=== PATIENT | female | born 1955 | race Caucasian/White ===

== ENCOUNTER → 2017-07-15 | Outpatient (CLI) | payer OTHER ==
[~2017-07-15] MED LIST: ALBU90OI INH; ALBU90OI6 INH; AMOX500 PO; BENZ100A PO; CLON1 PO; DIAZ2 PO; DIAZ5 PO; DOCU100 PO; FLUSAL1005 IH; HYDACE5 PO; HYDACE5325 PO; LORA1 PO; MEDICAL MARIJUANA; METPRE4DP PO; NAPR220 PO; ONDA8ODT MM; OXYACE5T PO; PROC10 PO; PROM25; RXOXYACE PO; VARE1 PO; [UNRECOGNIZED DRUG - REMARK] INH
[2017-07-16 15:31] LABS: Bilirubin, Urine Neg (Neg); Blood, Urine 3+ (Neg); Glucose Qualitative, Urine Neg (Neg); Ketones, Urine Neg (Neg); Leukocyte Esterase, Urine 3+ (Neg); Nitrite, Urine Neg (Neg); Protein, Urine 1+ (Neg); Specific Gravity, Urine 1.025 (1.003-1.022); Urobilinogen, Urine NORM (Normal)
[2017-07-16 15:37] LABS: Appearance, Urine Hazy (Clear); Color, Urine Yellow (P-Yellow)
[2017-07-16 15:38] LABS: Bacteria Mod /hpf; Red Blood Cells, Urine 25-50 /hpf (0-2); Squamous Epithelial Cells Few /hpf (Few); White Blood Cells, Urine 25-50 /hpf (0-5)
== END | disposition home or self-care (01) ==
LOC: LAB 15:16
PROVIDERS: Nurse Practitioner Family
DX: B37.9 Candidiasis, unspecified (principal); R31.9 Hematuria, unspecified
CPT/HCPCS: 81001; 87086

== ENCOUNTER 2017-08-06 15:44 | Emergency (ER) | payer OTHER ==
[~2017-08-06] VITALS: Ht 152.4 cm; Wt 72.6 kg
[2017-08-06 17:14] LABS: BASOPHILS ABSOLUTE AUTO 0.03 K/mm3 (0.00-0.23); BASOPHILS PERCENT AUTO 0 % (0-2); EOSINOPHILS ABSOLUTE AUTO 0.01 K/mm3 (0.00-0.68); EOSINOPHILS PERCENT AUTO 0 % (0-6); Hematocrit 42.4 % (33.0-51.0); Hemoglobin 13.8 g/dL (11.5-16.0); IMMATURE GRAN ABSOLUTE AUTO 0.04 K/mm3 (0.00-0.10); IMMATURE GRAN PERCENT AUTO 0 % (0-1); LYMPHOCYTES ABSOLUTE AUTO 1.75 K/mm3 (0.84-5.20); LYMPHOCYTES PERCENT AUTO 17 % (21-46); MONOCYTES ABSOLUTE AUTO 0.97 K/mm3 (0.16-1.47); MONOCYTES PERCENT AUTO 10 % (4-13); Mean Corpuscular HGB 29.1 pg (26.0-34.0); Mean Corpuscular HGB Conc 32.5 g/dL (31.5-36.5); Mean Corpuscular Volume 90 fL (80-100); Mean Platelet Volume 8.6 fL (9.1-12.4); NEUTROPHILS ABSOLUTE AUTO 7.28 K/mm3 (1.96-9.15); NEUTROPHILS PERCENT AUTO 72 % (41-73); Platelet Count 244 K/mm3 (150-400); RDW Standard Deviation 42.6 fL (35.1-46.3); Red Blood Cell Count 4.74 M/mm3 (3.80-5.20); White Blood Cell Count 10.08 K/mm3 (4.00-11.30)
[2017-08-06 17:40] LABS: Troponin I <0.015 ng/mL (0.000-0.040)
[2017-08-06 17:43] LABS: Alanine Aminotransfer (ALT/SGP 16 U/L (12-78); Albumin, Blood 3.4 g/dL (3.4-5.0); Albumin/Globulin Ratio 0.6 (0.8-1.8); Alk Phos 98 U/L (50-136); Anion Gap 10 mmol/L (6-16); Aspartate Aminotrans (AST/SGOT 26 U/L (12-37); Bilirubin, Total 0.8 mg/dL (0.1-1.0); Blood Urea Nitrogen 22 mg/dL (8-24); Bun/Creatinine Ratio 15.9 (12.0-20.0); CO2, Blood 22 mmol/L (21-32); Calcium, Blood 8.7 mg/dL (8.5-10.1); Chloride, Blood 96 mmol/L (98-108); Creatinine, Blood 1.38 mg/dL (0.40-1.00); Globulin, Blood 5.5 g/dL (2.2-4.0); Glomerular Filtration Rate 41 (60-); Glucose, Blood 107 mg/dL (70-99); Potassium, Blood 4.2 mmol/L (3.5-5.5); Sodium, Blood 128 mmol/L (136-145); Total Protein, Blood 8.9 g/dL (6.4-8.2)
== END 2017-08-06 18:10 | disposition left against medical advice (07) ==
LOC: ER 15:44
PROVIDERS: Emergency Medicine
DX: Z53.21 Procedure and treatment not carried out due to patient leaving prior to being seen by health care provider (principal)
CPT/HCPCS: 36415; 71046; 80053; 84484; 85025; 93005; 93010; 99283

== ENCOUNTER 2018-11-21 14:14 | Day surgery (SDC) | payer OTHER ==
[~2018-11-21 14:14] MED LIST changes: +BUPR75; +LEVSOD75; +LOSA50; +TIOT18
== END 2018-11-21 23:21 | disposition home or self-care (01) ==
LOC: RAD 14:14
DX: M16.11 Unilateral primary osteoarthritis, right hip (principal); M87.051 Idiopathic aseptic necrosis of right femur
CPT/HCPCS: 20610; 27093; 73525; 73722; 77002; A9577; Q9967

== ENCOUNTER 2020-04-26 09:30 | Day surgery (SDC) | payer OTHER ==
[~2020-04-26] VITALS: Ht 157.5 cm; Wt 50.8 kg
[~2020-04-26 09:30] MED LIST changes: +HYDR1TAB94 PO; +PEPCID40 MG PO; +Zofran8 MG PO
--- NOTE | 2020-04-26 13:43 | NUR ---
04/26/20 1343 MIGUEL WHALEY DELAYED ENTRY:1000 PT IS CANDIDATE FOR A MAC D/T UNDERLYING COMORBIDITIES AND HOME O2 USE. AND DR. PARSON IN AGREEMENT. CASE CHANGE TO MAC WITH DR. PARSON ANESTHESIOLOGIST.
== END 2020-04-26 11:40 | disposition home or self-care (01) ==
LOC: ORSCSDS 09:30
PROVIDERS: Surgery
PROC: 0DJD8ZZ Inspection of Lower Intestinal Tract, Via Natural or Artificial Opening Endoscopic (ICD-10-PCS; principal; 2020-04-26 10:45)
PROC: 0DJ08ZZ Inspection of Upper Intestinal Tract, Via Natural or Artificial Opening Endoscopic (ICD-10-PCS; principal; 2020-04-26 10:45)
DX: R10.13 Epigastric pain (principal); K62.5 Hemorrhage of anus and rectum; R63.4 Abnormal weight loss; J44.9 Chronic obstructive pulmonary disease, unspecified; K21.9 Gastro-esophageal reflux disease without esophagitis; N18.9 Chronic kidney disease, unspecified; E03.9 Hypothyroidism, unspecified; F17.210 Nicotine dependence, cigarettes, uncomplicated; Z79.01 Long term (current) use of anticoagulants; Z79.899 Other long term (current) drug therapy
CPT/HCPCS: J2704; J7120

== ENCOUNTER 2020-05-23 03:07 | Emergency (ER) | payer OTHER ==
[~2020-05-23] VITALS: Ht 154.9 cm; Wt 50.4 kg
[2020-05-23 03:45] LABS: BASOPHILS ABSOLUTE AUTO 0.07 K/mm3 (0.00-0.23); BASOPHILS PERCENT AUTO 1 % (0-2); EOSINOPHILS ABSOLUTE AUTO 0.26 K/mm3 (0.00-0.68); EOSINOPHILS PERCENT AUTO 2 % (0-6); Hematocrit 39.8 % (33.0-51.0); Hemoglobin 12.5 g/dL (11.5-16.0); IMMATURE GRAN ABSOLUTE AUTO 0.03 K/mm3 (0.00-0.10); IMMATURE GRAN PERCENT AUTO 0 % (0-1); LYMPHOCYTES ABSOLUTE AUTO 3.24 K/mm3 (0.84-5.20); LYMPHOCYTES PERCENT AUTO 27 % (21-46); MONOCYTES ABSOLUTE AUTO 0.94 K/mm3 (0.16-1.47); MONOCYTES PERCENT AUTO 8 % (4-13); Mean Corpuscular HGB 27.7 pg (26.0-34.0); Mean Corpuscular HGB Conc 31.4 g/dL (31.5-36.5); Mean Corpuscular Volume 88 fL (80-100); NEUTROPHILS ABSOLUTE AUTO 7.38 K/mm3 (1.96-9.15); NEUTROPHILS PERCENT AUTO 62 % (41-73); Platelet Count 468 K/mm3 (150-400); RDW Coefficient Variation 13.9 % (11.7-14.2); RDW Standard Deviation 44.9 fL (35.1-46.3); Red Blood Cell Count 4.51 M/mm3 (3.80-5.20); White Blood Cell Count 11.92 K/mm3 (4.00-11.30)
[2020-05-23 03:58] LABS: Alanine Aminotransfer (ALT/SGP 8 U/L (12-78); Albumin, Blood 2.9 g/dL (3.4-5.0); Albumin/Globulin Ratio 0.6 (0.8-1.8); Alk Phos 95 U/L (50-136); Anion Gap 6 mmol/L (6-16); Aspartate Aminotrans (AST/SGOT 17 U/L (12-37); Bilirubin, Total 0.5 mg/dL (0.1-1.0); Blood Urea Nitrogen 10 mg/dL (8-24); CO2, Blood 33 mmol/L (21-32); Calcium, Blood 9.1 mg/dL (8.5-10.1); Chloride, Blood 101 mmol/L (98-108); Creatinine, Blood 0.91 mg/dL (0.40-1.00); Globulin, Blood 5.2 g/dL (2.2-4.0); Glomerular Filtration Rate >60 (60-); Glucose, Blood 96 mg/dL (70-99); Potassium, Blood 2.8 mmol/L (3.5-5.5); Sodium, Blood 140 mmol/L (136-145); Total Protein, Blood 8.1 g/dL (6.4-8.2)
[2020-05-23] MEDS ORDERED: ALBU90OI INH (04:27)
[2020-05-23] MEDS ORDERED: CLOP75 PO (04:28)
[2020-05-23] MEDS ORDERED: POTCHL20ER PO (04:28)
[2020-05-23] MEDS ORDERED: OMEP20ER PO (04:28)
[2020-05-23] MEDS ORDERED: LEVSOD75 PO (04:29)
[2020-05-23] MEDS ORDERED: ATOR20 PO (04:29)
[2020-05-23] MEDS ORDERED: Ultram50 MG PO (04:30)
[2020-05-23] MEDS ORDERED: TRIDERM28.4 GM TOP (04:30)
[2020-05-23] MEDS ORDERED: LIDO5TO TOP (04:30)
== END 2020-05-23 06:15 | disposition home or self-care (01) ==
LOC: ER 03:07
PROVIDERS: Physician Assistant
DX: E87.6 Hypokalemia (principal); R10.9 Unspecified abdominal pain; G89.29 Other chronic pain; R11.2 Nausea with vomiting, unspecified; R19.7 Diarrhea, unspecified; G40.909 Epilepsy, unspecified, not intractable, without status epilepticus; J45.909 Unspecified asthma, uncomplicated; F17.210 Nicotine dependence, cigarettes, uncomplicated; Z79.02 Long term (current) use of antithrombotics/antiplatelets; Z79.899 Other long term (current) drug therapy
CPT/HCPCS: 80053; 83605; 85025; 93005; 93010; 96374; 99284-25; J3010

== ENCOUNTER 2020-06-08 11:02 | Day surgery (SDC) | payer OTHER ==
[~2020-06-08] VITALS: Ht 154.9 cm; Wt 49.0 kg
[~2020-06-08 11:02] MED LIST changes: +ATOR20 PO; +CLOP75 PO; +LEVSOD75 PO; +LIDO5TO TOP; +OMEP20ER PO; +POTCHL20ER PO; +TRIDERM28.4 GM TOP; +Ultram50 MG PO
--- NOTE | 2020-06-08 11:35 | NUR ---
DR DAVID EVALUATED PT, UPDATED ON LABS (LOW POTASSIUM); ORDERS RECEIVED.
[2020-06-08] MEDS ORDERED: SPIRIVA RESPIMAT4 G3 INH (11:55)
--- NOTE | 2020-06-08 14:45 | NUR ---
PATIENT RETURNED TO ROOM POST PROCEDURE. AWAKE AND RESPONDS APPROPRIATELY. RIGHT GROIN SITE SOFT AND NONTENDER. DRESSING DRY AND INTACT. DENIES PAIN. RIGHT PT AND DP 2. HOB 30 DEGREES.
--- NOTE | 2020-06-08 17:07 | NUR ---
PATIENT AMBULATED TO BATHROOM TO VOID. SATBLE. RETURNED TO BED. RIGHT GROIN SITE REMAINS SOFT AND NONTENDER. DRESSING DRY AND IN TACT
--- NOTE | 2020-06-08 17:15 | NUR ---
DR DAVID IN TO SEE PATIENT AND DISCUSS NEED TO CONTINUE HER PALVIX
--- NOTE | 2020-06-08 18:03 | NUR ---
PATIENT UP AND DRESSED BY SELF. RIGHT GROIN SITE REMAINS SOFT AND NONTENDER. NO BLEEDING. NO SWELLING. 75MG PLAVIX PO GIVEN PER DR COELLO ORDER. IV SITE DCED WITH CATHETER INTACT. PATIENT DENIES NAUSEA OR PAIN. DISCHARGE INSTRUCTIONS AND PRECAUTIONS GIVEN TO PATIENT. INSTRUCTIONS ON TAKING PLAVIX ALSO GIVEN TO HER SISTER. BOTH VERBALIZED UNDERSTANDING. PATIENT TRANSFERRED TO WAITING CAR VIA WHEEL CHAIR.
[2020-08-16] MEDS ORDERED: VITAMIN D31000 UNI1 PO (13:52)
[2020-08-16] MEDS ORDERED: EUTHYROX50 MCG PO (13:52)
[2020-08-16] MEDS ORDERED: ASPIR 8181 M1 PO (13:52)
[2020-08-16] MEDS ORDERED: LOSA50 PO (13:53)
== END 2020-06-08 22:40 | disposition home or self-care (01) ==
LOC: MHTC 11:02
DX: K55.1 Chronic vascular disorders of intestine (principal); I70.0 Atherosclerosis of aorta; I74.5 Embolism and thrombosis of iliac artery; I12.9 Hypertensive chronic kidney disease with stage 1 through stage 4 chronic kidney disease, or unspecified chronic kidney disease; N18.30 Chronic kidney disease, stage 3 unspecified; D63.1 Anemia in chronic kidney disease; F41.9 Anxiety disorder, unspecified; I25.10 Atherosclerotic heart disease of native coronary artery without angina pectoris; J44.9 Chronic obstructive pulmonary disease, unspecified; E03.9 Hypothyroidism, unspecified; G43.909 Migraine, unspecified, not intractable, without status migrainosus; Z20.822 Contact with and (suspected) exposure to COVID-19; Z86.73 Personal history of transient ischemic attack (TIA), and cerebral infarction without residual deficits; Z91.040 Latex allergy status; Z88.1 Allergy status to other antibiotic agents; Z88.5 Allergy status to narcotic agent; Z88.7 Allergy status to serum and vaccine; Z79.02 Long term (current) use of antithrombotics/antiplatelets; Z79.899 Other long term (current) drug therapy; Z91.030 Bee allergy status
CPT/HCPCS: 36245; 37221; 37236; 75625; 75726; 99152; 99153; A9270; C1725; C1760; C1769; C1874; C1876; C1887; C1894; J1644; J2250; J2405; J3010; J3480; J7030; J7050; Q9967

== ENCOUNTER 2020-06-14 11:34 | Inpatient (IN) | payer OTHER ==
[~2020-06-14] VITALS: Ht 157.5 cm; Wt 52.9 kg
[~2020-06-14 11:34] MED LIST changes: +SPIRIVA RESPIMAT4 G3 INH
[2020-06-14 11:50] LABS: Calcium, Ionized (POC) 1.05 mmol/L (1.10-1.46); Chloride (POC) 102 mmol/L (98-108); Creatinine (POC) 0.8 mg/dL (0.6-1.0); Glucose (ISTAT POC) 74 mg/dL (70-99); Hemoglobin (POC) 10.2 g/dL (12.0-16.0); Potassium (POC) 3.2 mmol/L (3.5-5.5); Sodium (POC) 140 mmol/L (135-148); Total CO2 (POC) 28 mmol/L (21-32)
[2020-06-14 11:55] LABS: Source, Urine Catheter
[2020-06-14 12:07] LABS: BASOPHILS ABSOLUTE AUTO 0.03 K/mm3 (0.00-0.23); BASOPHILS PERCENT AUTO 0 % (0-2); EOSINOPHILS ABSOLUTE AUTO 0.46 K/mm3 (0.00-0.68); EOSINOPHILS PERCENT AUTO 4 % (0-6); Hemoglobin 9.5 g/dL (11.5-16.0); IMMATURE GRAN ABSOLUTE AUTO 0.06 K/mm3 (0.00-0.10); IMMATURE GRAN PERCENT AUTO 1 % (0-1); LYMPHOCYTES ABSOLUTE AUTO 2.26 K/mm3 (0.84-5.20); LYMPHOCYTES PERCENT AUTO 21 % (21-46); MONOCYTES ABSOLUTE AUTO 0.79 K/mm3 (0.16-1.47); MONOCYTES PERCENT AUTO 7 % (4-13); Mean Corpuscular HGB 28.3 pg (26.0-34.0); Mean Corpuscular HGB Conc 31.7 g/dL (31.5-36.5); Mean Corpuscular Volume 89 fL (80-100); Mean Platelet Volume 8.8 fL (9.1-12.4); NEUTROPHILS ABSOLUTE AUTO 7.37 K/mm3 (1.96-9.15); NEUTROPHILS PERCENT AUTO 67 % (41-73); Platelet Count 386 K/mm3 (150-400); RDW Coefficient Variation 14.6 % (11.7-14.2); RDW Standard Deviation 46.7 fL (35.1-46.3); Red Blood Cell Count 3.36 M/mm3 (3.80-5.20); White Blood Cell Count 10.97 K/mm3 (4.00-11.30)
[2020-06-14 12:11] LABS: Appearance, Urine Clear (Clear); Bilirubin, Urine Neg (Neg); Blood, Urine Neg (Neg); Color, Urine Yellow (P-Yellow); Glucose Qualitative, Urine Neg (Neg); Ketones, Urine 1+ (Neg); Leukocyte Esterase, Urine 1+ (Neg); Nitrite, Urine Neg (Neg); Protein, Urine Neg (Neg); Specific Gravity, Urine 1.015 (1.003-1.022); Urobilinogen, Urine NORM (Normal); pH, Urine 6.5 (5.0-8.0)
[2020-06-14 12:30] LABS: Bacteria Few /hpf; Red Blood Cells, Urine 0-2 /hpf (0-2); Squamous Epithelial Cells Few /hpf (Few)
[2020-06-14 12:35] LABS: U Amphetamine Screen DETECTED; U Barbituate Screen Not Detected; U Benzodiazapine Screen Not Detected; U Cocaine Screen Not Detected; U Methadone Screen Not Detected; U Methamphetamine Screen DETECTED; U Opiates Screen DETECTED
[2020-06-14 12:36] LABS: U Buprenorphine Screen Not Detected; U Cannabinoids Screen Not Detected; U Oxycodone Screen Not Detected; U Phencyclidine Screen Not Detected
[2020-06-14 12:44] LABS: U Propoxyphene Screen Not Detected
[2020-06-14 12:51] LABS: Alanine Aminotransfer (ALT/SGP 19 U/L (12-78); Albumin, Blood 2.5 g/dL (3.4-5.0); Albumin/Globulin Ratio 0.6 (0.8-1.8); Alk Phos 75 U/L (50-136); Anion Gap 8 mmol/L (6-16); Aspartate Aminotrans (AST/SGOT 86 U/L (12-37); Bilirubin, Total 0.6 mg/dL (0.1-1.0); Blood Urea Nitrogen 10 mg/dL (8-24); Bun/Creatinine Ratio 12.8 (12.0-20.0); CO2, Blood 26 mmol/L (21-32); Chloride, Blood 107 mmol/L (98-108); Creatinine, Blood 0.78 mg/dL (0.40-1.00); Free Thyroxine 0.72 ng/dL (0.70-1.60); Globulin, Blood 4.5 g/dL (2.2-4.0); Glomerular Filtration Rate >60 (60-); Glucose, Blood 74 mg/dL (70-99); Potassium, Blood 3.2 mmol/L (3.5-5.5); Sodium, Blood 141 mmol/L (136-145)
[2020-06-14 12:55] LABS: Troponin I 0.991 ng/mL (0.000-0.040)
[2020-06-14] MEDS ORDERED: PLAVIX75 MG PO (13:14)
[2020-06-14] MEDS ORDERED: ATOR40TA PO (13:14)
[2020-06-14] MEDS ORDERED: SPIRIVA RESPIMAT4 G3 INH (13:14)
[2020-06-14] MEDS ORDERED: SYNTHROID75 MCG PO (13:15)
[2020-06-14] MEDS ORDERED: OMEP20ER PO (13:15)
[2020-06-14] MEDS ORDERED: BREO ELLIPTA 21 EAC1 INH (13:16)
[2020-06-14] MEDS ORDERED: Ventolin/Prove6.7 GM INH (13:16)
[2020-06-14] MEDS ORDERED: TRAM50 PO (13:17)
[2020-06-14] MEDS ORDERED: ESCI20 PO (13:17)
[2020-06-14] MEDS ORDERED: AMIT50 PO (13:17)
[2020-06-14 13:40] LABS: Creatine Kinase MB 35.6 ng/mL (0.0-3.6)
[2020-06-14 13:45] LABS: U Amphetamine Screen DETECTED; U Barbituate Screen Not Detected; U Benzodiazapine Screen Not Detected; U Buprenorphine Screen Not Detected; U Cannabinoids Screen Not Detected; U Cocaine Screen Not Detected; U Methadone Screen Not Detected; U Methamphetamine Screen DETECTED; U Opiates Screen DETECTED; U Oxycodone Screen Not Detected; U Phencyclidine Screen Not Detected; U Propoxyphene Screen Not Detected
[2020-06-14 14:42] LABS: Creatine Kinase MB Index 1.6 (0.0-4.0)
[2020-06-14 15:11] LABS: PCO2 Arterial 42.3 mmHg (35-45); PO2 Arterial 61.5 mmHg (80-100); pH Blood Arterial 7.38 (7.35-7.45)
[2020-06-14] MEDS ORDERED: Pravastatin Sod20 MG PO (16:02)
--- NOTE | 2020-06-14 16:10 | NUR ---
INITIAL ASSESSMENT PATIENT UNRESPONSIVE WHEN ARRIVED TO UNIT FROM ER AT 1542. PATIENT DID NOT MOVE OR RESPOND IN ANY WAY WHEN TRANSFERRED OVER TO ICU BED FROM ER [facility]. SHORT TIME AFTER PATIENT RESPONDED TO A FEW OF NURSES QUESTIONS AFTER PATIENT'S SISTER, NED, ARRIVED IN ROOM. PATIENT WEAK. PASSIVE. PATIENT LETHARGIC AND MOSTLY SLEEPING. NO SIGNS OF PAIN NOTED. PATIENT AFEBRILE. LUNGS COARSE THROUGHOUT. PATIENT SATTING 90% AND GREATER ON RA. PATIENT HAS MOIST, NONPRODUCTIVE COUGH. PATIENT NOTED TO HAVE R LOWER LOBECTOMY. PATIENT IN SR, HR 70S TO 80S. SBP 120S TO 140S. R ABDOMINAL QUADRANT TENDER TO PALPATION. LAST BM ON THE . PATIENT NPO AT THIS TIME. TEMP PROBE MARIE IN PLACE DRAINING YELLOW COLORED URINE. COCCYX REDDENED; BLANCHEABLE. MUCOUS MEMBRANES DRY. OLD CHAIN MENDER PUNTURE SITE TO R GROIN; NO BLEEDING, BRUISING, HEMATOMA NOTED. NS INFUSING AT 100 MLS/ HOUR. K RIDER INFUSING FOR POTASSIUM IN ER OF 3.2. PATIENT ORIENTED TO UNIT, ROOM AND CALL LIGHT. BED LOW, CALL LIGHT IN REACH. MUCH OF ADMIT DATA POSSIBLE COMPLETED WITH PATIENT'S SISTER, NED.
--- NOTE | 2020-06-14 17:28 | NUR ---
Echocardiogram completed.
[2020-06-14 18:20] LABS: Hematocrit 27.4 % (33.0-51.0); Hemoglobin 8.5 g/dL (11.5-16.0)
--- NOTE | 2020-06-14 18:57 | NUR ---
SHIFT SUMMARY PATIENT ARRIVED TO UNIT AT 1540 FROM ER. PATIENT LETHARGIC AND SLEPT MOST OF THE TIME SINCE BEING ADMITTED TO ICU. PATIENT DOES ANWER INTERMITTENT QUESTIONS. PATIENT STATED TO HER SISTER "YOU SHOULD HAVE JUST LEFT ME. I AM TIRED". PATIENT HAS HAD NO COMPLAINTS OF PAIN. PATIENT HAS REMAINED AFEBRILE. PATIENT HAS REMAINED SATTING 90% AND GREATER ON RA. LUNGS REMAIN COARSE AND PATIENT CONTINUES TO HAVE MOIST, NONPRODUCTIVE COUGH. PATIENT IN SR, HR 70S TO 80S. SBP LOW 100S TO 140S. ECHO REPORT SHOWED NOTHING SIGNIFICANT. R ABDOMINAL QUADRANT TENDER TO PALPATION. PATIENT HAS REMAINED NPO. NO BM THIS SHIFT. NO CHANGE TO SKIN. NS INFUSING AT 100 MLS/ HOUR. PATIENT RECEIVED 40 MEQ OF KCL FOR POTASSIUM OF 3.2 IN ER. TEMP PROBE MARIE DRAINED 1150 MLS OF YELLOW COLORED URINE. PATIENT APPEARS COMFORTABLE AT THIS TIME. BED LOW, CALL LIGHT IN REACH. REPORT WILL BE GIVEN TO ASSUMING APPLIANCE FIXER NURSE SHORTLY.
--- NOTE | 2020-06-14 19:00 | NUR ---
ASSUMED CARE ASSUMED CARE OF PATIENT. ROUSES TO VERBAL STIMULI. ORIENTED TO SELF AND TO PLACE, BUT NOT TO DATE/TIME OR EVENTS LEADING UP TO HOSPITALIZATION. MOVES ALL EXTREMITIES WEAKLY AND TO COMMAND. SLOW VERBAL RESPONSE, BUT SPEECH IS CLEAR AND APPROPRIATE. PT IS ABLE TO ASSIST WITH REPOSITIONING. DENIES C/O PAIN OR DISCOMFORT. FLAT AFFECT NOTED. PT STATES "I WISH THEY WOULD'VE JUST LEFT ME ON THE FLOOR." DENIES SUICIDAL IDEATION, BUT STATES "I DON'T CARE IF I LIVE OR ." VSS. NS INFUSING AT 100CC/HR PER ORDER. MARIE PATENT AND DRAINING CLEAR YELLOW URINE. SEE SHIFT ASSESSMENT FOR FULL ASSESSMENT.
[2020-06-15 00:28] LABS: Hemoglobin 7.8 g/dL (11.5-16.0)
--- NOTE | 2020-06-15 01:10 | NUR ---
DIET/NICOTINE PATCH REQUEST PT REQUESTING FOOD, BUT IS ORDERED NPO AT THIS TIME. ALSO REQUESTING TO BE ABLE TO GO OUT AND SMOKE OR TO GET A NICOTINE PATCH. CALL TO DR. HOLMAN- NEW ORDERS RECEIVED TO ADVANCE DIET TOLERATED AND FOR A NICOTINE PATCH.
[2020-06-15 06:11] LABS: BASOPHILS ABSOLUTE AUTO 0.04 K/mm3 (0.00-0.23); BASOPHILS PERCENT AUTO 0 % (0-2); EOSINOPHILS ABSOLUTE AUTO 0.29 K/mm3 (0.00-0.68); EOSINOPHILS PERCENT AUTO 3 % (0-6); Hematocrit 22.9 % (33.0-51.0); Hemoglobin 7.3 g/dL (11.5-16.0); IMMATURE GRAN ABSOLUTE AUTO 0.06 K/mm3 (0.00-0.10); IMMATURE GRAN PERCENT AUTO 1 % (0-1); LYMPHOCYTES ABSOLUTE AUTO 2.58 K/mm3 (0.84-5.20); LYMPHOCYTES PERCENT AUTO 23 % (21-46); MONOCYTES ABSOLUTE AUTO 0.84 K/mm3 (0.16-1.47); MONOCYTES PERCENT AUTO 8 % (4-13); Mean Corpuscular HGB 28.2 pg (26.0-34.0); Mean Corpuscular HGB Conc 31.9 g/dL (31.5-36.5); Mean Corpuscular Volume 88 fL (80-100); Mean Platelet Volume 8.6 fL (9.1-12.4); NEUTROPHILS ABSOLUTE AUTO 7.46 K/mm3 (1.96-9.15); NEUTROPHILS PERCENT AUTO 66 % (41-73); Platelet Count 306 K/mm3 (150-400); RDW Coefficient Variation 14.9 % (11.7-14.2); Red Blood Cell Count 2.59 M/mm3 (3.80-5.20); White Blood Cell Count 11.27 K/mm3 (4.00-11.30)
[2020-06-15 06:31] LABS: Alanine Aminotransfer (ALT/SGP 16 U/L (12-78); Albumin, Blood 1.9 g/dL (3.4-5.0); Albumin/Globulin Ratio 0.5 (0.8-1.8); Alk Phos 54 U/L (50-136); Anion Gap 5 mmol/L (6-16); Aspartate Aminotrans (AST/SGOT 72 U/L (12-37); Bilirubin, Total 0.4 mg/dL (0.1-1.0); Blood Urea Nitrogen 11 mg/dL (8-24); Bun/Creatinine Ratio 11.7 (12.0-20.0); CO2, Blood 29 mmol/L (21-32); Calcium, Blood 7.4 mg/dL (8.5-10.1); Chloride, Blood 108 mmol/L (98-108); Creatinine, Blood 0.94 mg/dL (0.40-1.00); Globulin, Blood 3.7 g/dL (2.2-4.0); Glomerular Filtration Rate >60 (60-); Glucose, Blood 120 mg/dL (70-99); Potassium, Blood 3.3 mmol/L (3.5-5.5); Sodium, Blood 142 mmol/L (136-145); Total Protein, Blood 5.6 g/dL (6.4-8.2)
--- NOTE | 2020-06-15 06:41 | NUR ---
SHIFT SUMMARY NO ACUTE CHANGES DURING NOC. PT SLEEPING INTERMITTENTLY. ALERT AND ORIENTED TO EVERYTHING EXCEPT TIME OF DAY WHEN AWAKE. REPOSITIONS SELF IN BED WITHOUT DIFFICULTY. DENIES C/O PAIN OR DISCOMFORT. TOLERATING ADVANCEMENT OF DIET. SWALLOWING WITHOUT DIFFICULTY. NS INFUSING AT 100CC/HR PER ORDER. MARIE PATENT AND DRAINING TO GRAVITY. CONTINUES TO C/O NUMBNESS AND TINGLING IN LEFT FOOT AND IN FINGERTIPS. BASKET ASSEMBLER STRONG AND EQUAL BILATERALLY. VSS. TMAXZ 100.2F. WILL REPORT TO ONCOMING RN WHEN AVAILABLE.
[2020-06-15 06:43] LABS: CPK Creatine Kinase 1409 U/L (26-193)
--- NOTE | 2020-06-15 08:30 | NUR ---
ASSUMED CARE RECEIVED REPORT FROM JONATHAN TREVIZO. PT IS AWAKE, ALERT AND ORIENTED X 4, SELF,SITUATION,SURROUNDINGS, AND DATE. PT DENIES ANY PAIN, INCLUDING ABD/CHEST PAIN. SHE IS ON 2L NC, SPO2 +96%, STATING SHE IS MILDLY SHORT OF BREATH, BUT THAT IS NORMAL. NS INFUSING AT 100 ML/HR. PG SITE WNL, FLUSHING/DRAWING BLOOD. PATENT MARIE, DRAINING YELLOW URINE. BED IS LOW AND LOCKED. CALL LIGHT WITHIN REACH.
--- NOTE | 2020-06-15 09:47 | NUR ---
UPDATE PT HAS BEEN CLEARED TO BE MADE MEDICAL STATUS BY DR. KIMBROUGH AND DR. HALL. PT HAD BM IN BEDSIDE COMMODE WITH NO OBVIOUS SIGNS OF BLOOD. HR AND MAP STABLE (90s, >65, RESPECTIVELY). NO MAJOR DISCOMFORT/PAIN REPORTED. TELEMETRY DISCONTINUED. 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 BUT AFTER 06/08/20 AND BEFORE 06/14/20. MOST LIKELY BETWEEN 06/12/20-06/14/20 ACCORDING TO PT'S RECOUNT OF EVENTS. SHE ONLY REMEMBERS WALKING TO THE CLOSET, AND BECOMING VERY DIZZY, AND THEN PASSING OUT - WAKING UP TO BEING IN THE HOSPITAL. THAT MORNING SHE USED METH, SHE STATES, AND THE NIGHT BEFORE, BUT THAT SHE HAD BEEN OFF OF IT FOR A PROLONGED PERIOD OF TIME - SHE MAINLY USED METH YEARS AND YEARS AGO, WHEN SHE WAS YOUNGER. SHE STATES SHE HAS FRIENDS THAT DO METH, AND THATS WHERE SHE ACQUIRED IT. BED LOW AND LOCKED. CALL LIGHT WITHIN REACH.
[2020-06-15 12:53] LABS: Percent Saturation 9.6 % (15.0-50.0)
[2020-06-15 14:33] LABS: BASOPHILS ABSOLUTE AUTO 0.04 K/mm3 (0.00-0.23); BASOPHILS PERCENT AUTO 0 % (0-2); EOSINOPHILS ABSOLUTE AUTO 0.12 K/mm3 (0.00-0.68); EOSINOPHILS PERCENT AUTO 1 % (0-6); Hematocrit 24.4 % (33.0-51.0); Hemoglobin 7.6 g/dL (11.5-16.0); IMMATURE GRAN ABSOLUTE AUTO 0.09 K/mm3 (0.00-0.10); IMMATURE GRAN PERCENT AUTO 1 % (0-1); LYMPHOCYTES ABSOLUTE AUTO 1.69 K/mm3 (0.84-5.20); LYMPHOCYTES PERCENT AUTO 16 % (21-46); MONOCYTES ABSOLUTE AUTO 0.59 K/mm3 (0.16-1.47); MONOCYTES PERCENT AUTO 6 % (4-13); Mean Corpuscular HGB 27.6 pg (26.0-34.0); Mean Corpuscular HGB Conc 31.1 g/dL (31.5-36.5); Mean Corpuscular Volume 89 fL (80-100); Mean Platelet Volume 9.3 fL (9.1-12.4); NEUTROPHILS ABSOLUTE AUTO 7.75 K/mm3 (1.96-9.15); NEUTROPHILS PERCENT AUTO 75 % (41-73); Platelet Count 350 K/mm3 (150-400); RDW Coefficient Variation 14.8 % (11.7-14.2); RDW Standard Deviation 47.8 fL (35.1-46.3); Red Blood Cell Count 2.75 M/mm3 (3.80-5.20); White Blood Cell Count 10.28 K/mm3 (4.00-11.30)
--- NOTE | 2020-06-15 19:10 | NUR ---
SHIFT SUMMARY NO ACUTE EVENTS T/O SHIFT. SHE HAS GOTTEN OUT OF BED SEVERAL TIMES TO USE BEDSIDE COMMODE, MAINLY JUST STANDING AND PIVOTING, STEADY GAIT, SBA ONLY. PT/OT CONSULTED, BUT DIDN'T SEE PT TODAY, HOPEFULLY TOMORROW. SHE DENIES PAIN, INCREASED SOB, AND NAUSEA. HER ONLY COMPLAINT IS FEELING A LITTLE WEAK (DECONDITIONED) AND HER LOWER LEFT EXTREMITY SOMETIMES HAS COLD, PURPLE TOES - BUT CURRENTLY THEY LOOK WNL. HOWEVER, HER LEFT FOOT IS COOLER THAN RIGHT (STILL WARM), AND THE PULSE IS MORE FAINT. DR. DAVID CAME BY ROOM AND TALKED TO HER ABOUT SCHEDULING AN APPOINTMENT WITH HIS OFFICE AFTER SHE IS DISCHARGED, SO THEY CAN DO ANOTHER PROCEDURE (SAME ON THE 06/08/20, BUT ON THE LEFT SIDE). SHE HAS BEEN ON 2L NC FOR MAJORITY OF DAY, BUT NOW IS ON ROOM, SHE ONLY USES OXYGEN AT HOME IF SHE FEELS SHE NEEDS IT. SATs HAVE BEEN 97%+. BED IS LOW AND LOCKED. CALL LIGHT WITHIN REACH. PT IS INDEPENDENT IN BED.
--- NOTE | 2020-06-15 21:00 | NUR ---
Care Assumed 1900, Med no tele. Pt resting in bed. Able to use call light. A/O X 4. Able to transfer to bedside commode with minimal assistance . NS infusing via MOHSEN powerglide. On RA, SPO2 > 90%. BP 155/46. See full shift assessment for further details. Call light within reach will continue to monitor.
--- NOTE | 2020-06-15 21:42 | NUR ---
TRANSFER NOTE HANDOFF RECEIVED FROM MIXER OPERATOR SARMAD. PT TRANSFERED TO FLOOR VIA WHEELCHAIR. IV FLUIDS RESTARTED ORDERED. PT ORIENTED TO UNIT. CALL BUTTON WITHIN REACH
--- NOTE | 2020-06-15 21:56 | NUR ---
Transfer to 336 Report given to Suzanne Sellers RN. Pt transferred to medical floor at 2139. Pt is A/O X 4. On RA. NS via powerglide to [facility]. Pt is aware she is being moved to medical floor. Able to transfer to wheelchair without assistance. All belongings send with pt.
--- NOTE | 2020-06-16 04:45 | NUR ---
SHIFT SUMMARY ADMITTED FOR TOXIC METABOLIC ENCEPHALOPATHY. FULL CODE. SHE HAD FALLEN AT HOME, UNSURE OF HOW LONG SHE WAS DOWN. 6 DAYS BEFORE THIS FALL SHE HAD STENTS PLACED IN SMA & RT ILIAC. RT FEMORAL ARTERY ACCESS. SHE DOES METH OCCASIONALLY AND WAS POSITIVE FOR METH ON ADMIT. NS IS INFUSING @ 100 ML/HR. SHE IS URINATING FREQUENTLY AND COPIOUSLY Q 2HRS. SHE DOES LIVE ALONE. POWERFAHEEM IN [facility]
[2020-06-16 05:35] LABS: BASOPHILS ABSOLUTE AUTO 0.03 K/mm3 (0.00-0.23); BASOPHILS PERCENT AUTO 0 % (0-2); EOSINOPHILS ABSOLUTE AUTO 0.26 K/mm3 (0.00-0.68); EOSINOPHILS PERCENT AUTO 3 % (0-6); Hematocrit 25.9 % (33.0-51.0); Hemoglobin 8.1 g/dL (11.5-16.0); IMMATURE GRAN ABSOLUTE AUTO 0.06 K/mm3 (0.00-0.10); IMMATURE GRAN PERCENT AUTO 1 % (0-1); LYMPHOCYTES ABSOLUTE AUTO 2.63 K/mm3 (0.84-5.20); LYMPHOCYTES PERCENT AUTO 26 % (21-46); MONOCYTES ABSOLUTE AUTO 0.84 K/mm3 (0.16-1.47); MONOCYTES PERCENT AUTO 8 % (4-13); Mean Corpuscular HGB 27.8 pg (26.0-34.0); Mean Corpuscular HGB Conc 31.3 g/dL (31.5-36.5); Mean Corpuscular Volume 89 fL (80-100); Mean Platelet Volume 8.9 fL (9.1-12.4); NEUTROPHILS ABSOLUTE AUTO 6.34 K/mm3 (1.96-9.15); NEUTROPHILS PERCENT AUTO 62 % (41-73); Platelet Count 351 K/mm3 (150-400); RDW Standard Deviation 48.2 fL (35.1-46.3); Red Blood Cell Count 2.91 M/mm3 (3.80-5.20); White Blood Cell Count 10.16 K/mm3 (4.00-11.30)
[2020-06-16 05:53] LABS: Anion Gap 5 mmol/L (6-16); Blood Urea Nitrogen 10 mg/dL (8-24); Bun/Creatinine Ratio 13.8 (12.0-20.0); CO2, Blood 27 mmol/L (21-32); Calcium, Blood 7.7 mg/dL (8.5-10.1); Chloride, Blood 113 mmol/L (98-108); Creatinine, Blood 0.72 mg/dL (0.40-1.00); Glomerular Filtration Rate >60 (60-); Glucose, Blood 110 mg/dL (70-99); Potassium, Blood 3.7 mmol/L (3.5-5.5); Sodium, Blood 145 mmol/L (136-145)
[2020-06-16] MEDS ORDERED: MIRALAX17 GM PO (14:19)
--- NOTE | 2020-06-16 16:01 | NUR ---
PATIENT DISCHARGE: PATIENT DISCHARGED TO HOME THIS SHIFT. MEDICATION RECONCILIATION COMPLETED; MED LIST FAXED TO [facility] IN [place]. DISCHARGE EDUCATION COMPLETED WITH PATIENT. PATIENT TRANSPORTED TO EXIT BY [facility] STAFF WITH WHEELCHAIR AT 1557. PATIENT DEPARTED [facility] VIA PRIVATE AUTO.
[2020-08-16] MEDS ORDERED: VITAMIN D31000 UNI1 PO (13:52)
[2020-08-16] MEDS ORDERED: ASPIR 8181 M1 PO (13:52)
[2020-08-16] MEDS ORDERED: EUTHYROX50 MCG PO (13:52)
[2020-08-16] MEDS ORDERED: LOSA50 PO (13:53)
== END 2020-06-16 15:57 | disposition home or self-care (01) | DRG 917 ==
LOC: ER 11:34 → ICUW 14:40 → MEDS 06-15 21:37
PROVIDERS: Emergency Medicine; Nurse Practitioner Acute Care; Student in an Organized Health Care Education/Training Program; ADMIT Internal Medicine
DX: T43.621A Poisoning by amphetamines, accidental (unintentional), initial encounter (principal); G92 Toxic encephalopathy; I21.4 Non-ST elevation (NSTEMI) myocardial infarction; D62 Acute posthemorrhagic anemia; M62.82 Rhabdomyolysis; J44.9 Chronic obstructive pulmonary disease, unspecified; E03.9 Hypothyroidism, unspecified; F32.9 Major depressive disorder, single episode, unspecified; G89.29 Other chronic pain; T68.XXXA Hypothermia, initial encounter; I77.9 Disorder of arteries and arterioles, unspecified; D50.9 Iron deficiency anemia, unspecified
CPT/HCPCS: 36600; 51702; 70450; 71045; 74177; 80047; 80048; 80053; 81001; 82550; 82553; 82728; 82803; 83540; 83550; 83605; 83880; 84145; 84439; 84443; 84484; 85014; 85018; 85025; 87040; 87086; 93005; 93010; 93306; 94640; 94760; 96365-59; 96375-59; 96376-59; 97116; 97162; 97165; 97530; 99285-25; A9270; C1751; G0008; G0480; J1940; J2310; J2916; J3480; J7030; Q9967

== ENCOUNTER 2020-08-17 06:02 | Day surgery (SDC) | payer OTHER ==
[~2020-08-17] VITALS: Ht 154.9 cm; Wt 53.6 kg
[~2020-08-17 06:02] MED LIST changes: +AMIT50 PO; +ASPIR 8181 M1 PO; +ATOR40TA PO; +BREO ELLIPTA 21 EAC1 INH; +ESCI20 PO; +EUTHYROX50 MCG PO; +LOSA50 PO; +MIRALAX17 GM PO; +PLAVIX75 MG PO; +Pravastatin Sod20 MG PO; +SYNTHROID75 MCG PO; +TRAM50 PO; +VITAMIN D31000 UNI1 PO; +Ventolin/Prove6.7 GM INH
--- NOTE | 2020-08-17 09:42 | NUR ---
0934 ASSUMED CARE OF PATIENT. RETURNED FROM PERIPHERAL INTERVENTION. SBAR FROM JONATHAN HEIN. PATIENT SUPINE ON THE GURNEY, MONITOR APPLIED, ROOM AIR, SLEEPING. PERDAL PULSES AND GROIN SITES CHECKED Q 15 MINUTES, NO BLEEDING NOTED. NO HEMATOMA NOTED. SEE FLOWSHEET. CALL LIGHT IN REACH, SIDE RAILS UP X 2.
--- NOTE | 2020-08-17 10:41 | NUR ---
1015 HOB UP 30 DEGREES, PATIENT MORE AWAKE, ATTEMPTING TO FEED SELF DIET. NO PAIN NOTED. GROIN SITES UNCHANGED. NO HEMATOMA, NO BLEEDING NOTED. MONITOR IN PLACE. PEDAL PULSES UNCHANGED.
--- NOTE | 2020-08-17 11:18 | NUR ---
PATIENT SITTING UP IN THE BED, HIGH FOWLERS. VVS. SECOND CUP OF COFFEE, NO PAIN, GROIN SITES UNCHANGED. PEDAL PULSES UNCHANGED.
--- NOTE | 2020-08-17 11:21 | NUR ---
CALLED DAUGHTER AND SHE IS DRIVING IN FROM [place]. WILL MEET US OUTSIDE JUST AFTER 12 NOON FOR DISCHARGE.
--- NOTE | 2020-08-17 11:41 | NUR ---
PATINET UP TO RESTRROM, VOIDED AND RETURNED TO THE BEDSIDE. SITTING ON THE SIDE OF THE BED DRINKING COFFEE. RN AT THE BEDSIDE AND REVIEWED ALL DISCHARGE INSTRUCTIONS. FOLLOW UP APPOINTMENT MADE AND WRITTEN DOWN FOR PATIENT. PATIENT SIGNED DISCHARGE INSTRUCTIONS AND VERBALIZED UNDERSTANDINFG OF INSTRUCTIONS. COPIES GIVEN TO THE MARISSA.
--- NOTE | 2020-08-17 11:43 | NUR ---
CALLED PATIENTS DAUGHTER AND SHE WILL MEET UP AT THE ENTRANCE JUST AFTER 1200 NOON.
--- NOTE | 2020-08-17 11:51 | NUR ---
PATIENT GATHERED ALL BELONGINGS AND TO THE WHEELCHAIR. PATIENT TAKEN TO THE ENTRANCE VIA WHEELCHAIR FOR DISCHARGE HOME WITH DAUGHTER DRIVING. NO PAIN NOTED. DISCHARGE INSTRUCTIONS AND FOLLOW UP APPOINTMENT IN HAND.
== END 2020-08-17 12:23 | disposition home or self-care (01) ==
LOC: MHTC 06:02
DX: I70.213 Atherosclerosis of native arteries of extremities with intermittent claudication, bilateral legs (principal); I12.9 Hypertensive chronic kidney disease with stage 1 through stage 4 chronic kidney disease, or unspecified chronic kidney disease; N18.30 Chronic kidney disease, stage 3 unspecified; J44.9 Chronic obstructive pulmonary disease, unspecified; I25.10 Atherosclerotic heart disease of native coronary artery without angina pectoris; E03.9 Hypothyroidism, unspecified; F17.210 Nicotine dependence, cigarettes, uncomplicated; Z79.82 Long term (current) use of aspirin; Z85.118 Personal history of other malignant neoplasm of bronchus and lung; Z85.3 Personal history of malignant neoplasm of breast
CPT/HCPCS: 37220; 37221; 75716; 76937; 99152; 99153; C1760; C1769; C1876; C1887; C1894; J1644; J2250; J3010; J7030; J7050; Q9967

== ENCOUNTER 2020-12-23 14:02 | Emergency (ER) | payer OTHER ==
[~2020-12-23] VITALS: Ht 154.9 cm; Wt 52.2 kg
[2020-12-23 14:42] LABS: BASOPHILS ABSOLUTE AUTO 0.06 K/mm3 (0.00-0.23); BASOPHILS PERCENT AUTO 0 % (0-2); EOSINOPHILS ABSOLUTE AUTO 0.25 K/mm3 (0.00-0.68); EOSINOPHILS PERCENT AUTO 2 % (0-6); Hematocrit 41.6 % (33.0-51.0); Hemoglobin 13.3 g/dL (11.5-16.0); IMMATURE GRAN ABSOLUTE AUTO 0.05 K/mm3 (0.00-0.10); IMMATURE GRAN PERCENT AUTO 0 % (0-1); LYMPHOCYTES PERCENT AUTO 23 % (21-46); MONOCYTES ABSOLUTE AUTO 1.15 K/mm3 (0.16-1.47); MONOCYTES PERCENT AUTO 8 % (4-13); Mean Corpuscular HGB 28.3 pg (26.0-34.0); Mean Corpuscular Volume 89 fL (80-100); Mean Platelet Volume 9.6 fL (9.1-12.4); NEUTROPHILS ABSOLUTE AUTO 9.19 K/mm3 (1.96-9.15); NEUTROPHILS PERCENT AUTO 67 % (41-73); Platelet Count 376 K/mm3 (150-400); RDW Standard Deviation 45.4 fL (35.1-46.3)
[2020-12-23 14:53] LABS: Albumin, Blood 3.3 g/dL (3.4-5.0); Albumin/Globulin Ratio 0.5 (0.8-1.8); Bilirubin, Total 0.7 mg/dL (0.1-1.0); Bun/Creatinine Ratio 11.9 (12.0-20.0); Calcium, Blood 9.5 mg/dL (8.5-10.1); Creatinine, Blood 1.09 mg/dL (0.40-1.00); Globulin, Blood 6.5 g/dL (2.2-4.0); Potassium, Blood 4.5 mmol/L (3.5-5.5); Total Protein, Blood 9.8 g/dL (6.4-8.2)
[2020-12-23 15:00] LABS: Source, Urine Clean Catch
[2020-12-23 15:08] LABS: Appearance, Urine Hazy (Clear); Bilirubin, Urine Neg (Neg); Blood, Urine 2+ (Neg); Color, Urine Yellow (P-Yellow); Glucose Qualitative, Urine 2+ (Neg); Ketones, Urine Neg (Neg); Leukocyte Esterase, Urine 2+ (Neg); Nitrite, Urine Neg (Neg); Protein, Urine 2+ (Neg); Urobilinogen, Urine NORM (Normal)
[2020-12-23 15:26] LABS: Amorphous Mod (0-Heavy); Bacteria Mod /hpf; Hyaline Casts 0-2 /lpf (0-2); Red Blood Cells, Urine 0-2 /hpf (0-2); Squamous Epithelial Cells Mod /hpf (Few)
[2020-12-23 16:07] LABS: U Amphetamine Screen DETECTED; U Barbituate Screen Not Detected; U Benzodiazapine Screen Not Detected; U Buprenorphine Screen Not Detected; U Cannabinoids Screen Not Detected; U Cocaine Screen Not Detected; U Methadone Screen Not Detected; U Methamphetamine Screen DETECTED; U Opiates Screen Not Detected; U Oxycodone Screen Not Detected; U Phencyclidine Screen Not Detected; U Propoxyphene Screen Not Detected
[2020-12-23 18:52] LABS: International Normalized Ratio 0.96; Prothrombin Time Results 10.4 Sec (9.7-11.5)
== END 2020-12-23 20:26 | disposition other institution (70) ==
LOC: ER 14:02
PROVIDERS: Student in an Organized Health Care Education/Training Program
DX: K55.069 Acute infarction of intestine, part and extent unspecified (principal); I10 Essential (primary) hypertension; E03.9 Hypothyroidism, unspecified; F17.210 Nicotine dependence, cigarettes, uncomplicated; Z79.899 Other long term (current) drug therapy; Z88.1 Allergy status to other antibiotic agents; Z88.5 Allergy status to narcotic agent; Z91.040 Latex allergy status; Z91.030 Bee allergy status
CPT/HCPCS: 36415; 74174; 80053; 81001; 83605; 83690; 85025; 85610; 85730; 96365-59; 96366-59; 96375-59; 96376-59; 99285-25; A9270; J1170; J1644; J2405; J7030; J7120; Q9967

== ENCOUNTER 2021-01-20 00:30 | Day surgery (SDC) | payer OTHER | END 2021-01-20 23:56 | disposition home or self-care (01) | LOC: WOUND 00:30 | DX: S31.109D Unspecified open wound of abdominal wall, unspecified quadrant without penetration into peritoneal cavity, subsequent encounter (principal); X58.XXXD Exposure to other specified factors, subsequent encounter | CPT/HCPCS: A9270; G0463 ==

== ENCOUNTER 2021-01-27 02:30 | Day surgery (SDC) | payer OTHER | END 2021-01-27 23:17 | disposition home or self-care (01) | LOC: WOUND 02:30 | DX: S31.109D Unspecified open wound of abdominal wall, unspecified quadrant without penetration into peritoneal cavity, subsequent encounter (principal); X58.XXXD Exposure to other specified factors, subsequent encounter | CPT/HCPCS: A9270 ==

== ENCOUNTER 2021-02-01 17:56 | Emergency (ER) | payer OTHER ==
[~2021-02-01] VITALS: Ht 165.1 cm; Wt 59.0 kg
[2021-02-01 22:45] LABS: BASOPHILS ABSOLUTE AUTO 0.04 K/mm3 (0.00-0.23); BASOPHILS PERCENT AUTO 0 % (0-2); EOSINOPHILS PERCENT AUTO 0 % (0-6); Hematocrit 27.3 % (33.0-51.0); Hemoglobin 8.7 g/dL (11.5-16.0); IMMATURE GRAN ABSOLUTE AUTO 0.16 K/mm3 (0.00-0.10); IMMATURE GRAN PERCENT AUTO 1 % (0-1); LYMPHOCYTES ABSOLUTE AUTO 2.05 K/mm3 (0.84-5.20); LYMPHOCYTES PERCENT AUTO 8 % (21-46); MONOCYTES PERCENT AUTO 5 % (4-13); Mean Corpuscular HGB 28.2 pg (26.0-34.0); Mean Corpuscular HGB Conc 31.9 g/dL (31.5-36.5); Mean Corpuscular Volume 88 fL (80-100); NEUTROPHILS ABSOLUTE AUTO 23.25 K/mm3 (1.96-9.15); NEUTROPHILS PERCENT AUTO 87 % (41-73); Platelet Count 332 K/mm3 (150-400); RDW Coefficient Variation 14.3 % (11.7-14.2); RDW Standard Deviation 45.6 fL (35.1-46.3); Red Blood Cell Count 3.09 M/mm3 (3.80-5.20)
[2021-02-01 22:59] LABS: Anion Gap 10 mmol/L (6-16); Blood Urea Nitrogen 25 mg/dL (8-24); Bun/Creatinine Ratio 22.9 (12.0-20.0); CO2, Blood 23 mmol/L (21-32); Calcium, Blood 8.7 mg/dL (8.5-10.1); Chloride, Blood 106 mmol/L (98-108); Creatinine, Blood 1.09 mg/dL (0.40-1.00); Ethanol (Alcohol), Blood, Med <3 mg/dL; Glomerular Filtration Rate 50 (60-); Glucose, Blood 131 mg/dL (70-99); Sodium, Blood 139 mmol/L (136-145)
[2021-02-01 23:32] LABS: U Amphetamine Screen DETECTED; U Benzodiazapine Screen DETECTED; U Methamphetamine Screen DETECTED
[2021-02-01 23:33] LABS: U Barbituate Screen Not Detected; U Buprenorphine Screen Not Detected; U Cannabinoids Screen DETECTED; U Cocaine Screen Not Detected; U Methadone Screen Not Detected; U Opiates Screen Not Detected; U Oxycodone Screen Not Detected; U Phencyclidine Screen Not Detected; U Propoxyphene Screen Not Detected
[2021-02-02] MEDS ORDERED: Zithromax250 MG PO (12:51)
[2021-02-02] MEDS ORDERED: CEFD300 PO (12:51)
== END 2021-02-02 02:10 | disposition home or self-care (01) ==
LOC: ER 17:56
PROVIDERS: Student in an Organized Health Care Education/Training Program
DX: F15.121 Other stimulant abuse with intoxication delirium (principal); S00.511A Abrasion of lip, initial encounter; D64.9 Anemia, unspecified; I10 Essential (primary) hypertension; E03.9 Hypothyroidism, unspecified; G43.909 Migraine, unspecified, not intractable, without status migrainosus; J45.909 Unspecified asthma, uncomplicated; F17.210 Nicotine dependence, cigarettes, uncomplicated; Z88.1 Allergy status to other antibiotic agents; Z88.5 Allergy status to narcotic agent; Z91.030 Bee allergy status; Z91.040 Latex allergy status; Z79.899 Other long term (current) drug therapy; Z79.82 Long term (current) use of aspirin; X58.XXXA Exposure to other specified factors, initial encounter
CPT/HCPCS: 36415; 70450; 71045; 80048; 82947; 85025; 93005; 93010; 96372; 99285-25; A9270; G0480; J1630; J2310; J7030

== ENCOUNTER 2021-02-03 02:59 | Day surgery (SDC) | payer OTHER ==
[~2021-02-03 02:59] MED LIST changes: +CEFD300 PO; +Zithromax250 MG PO
== END 2021-02-03 23:30 | disposition home or self-care (01) ==
LOC: WOUND 02:59
DX: S31.109D Unspecified open wound of abdominal wall, unspecified quadrant without penetration into peritoneal cavity, subsequent encounter (principal); X58.XXXD Exposure to other specified factors, subsequent encounter
CPT/HCPCS: G0463

== ENCOUNTER 2021-06-27 15:12 | Inpatient (IN) | payer OTHER ==
[~2021-06-27] VITALS: Ht 162.6 cm; Wt 52.2 kg
[2021-06-27] MEDS ORDERED: POTA10T PO (15:39)
[2021-06-27] MEDS ORDERED: HYDCHL25 PO (15:39)
[2021-06-27] MEDS ORDERED: Aspir 8181 MG PO (15:39)
[2021-06-27 15:44] LABS: BASOPHILS ABSOLUTE AUTO 0.05 K/mm3 (0.00-0.23); BASOPHILS PERCENT AUTO 1 % (0-2); EOSINOPHILS ABSOLUTE AUTO 0.27 K/mm3 (0.00-0.68); EOSINOPHILS PERCENT AUTO 3 % (0-6); Hematocrit 26.1 % (33.0-51.0); Hemoglobin 7.9 g/dL (11.5-16.0); IMMATURE GRAN ABSOLUTE AUTO 0.04 K/mm3 (0.00-0.10); IMMATURE GRAN PERCENT AUTO 0 % (0-1); LYMPHOCYTES ABSOLUTE AUTO 1.76 K/mm3 (0.84-5.20); LYMPHOCYTES PERCENT AUTO 19 % (21-46); MONOCYTES ABSOLUTE AUTO 0.91 K/mm3 (0.16-1.47); MONOCYTES PERCENT AUTO 10 % (4-13); Mean Corpuscular HGB 24.7 pg (26.0-34.0); Mean Corpuscular HGB Conc 30.3 g/dL (31.5-36.5); Mean Corpuscular Volume 82 fL (80-100); Mean Platelet Volume 8.5 fL (9.1-12.4); NEUTROPHILS ABSOLUTE AUTO 6.24 K/mm3 (1.96-9.15); NEUTROPHILS PERCENT AUTO 67 % (41-73); Platelet Count 377 K/mm3 (150-400); RDW Coefficient Variation 16.7 % (11.7-14.2); RDW Standard Deviation 49.8 fL (35.1-46.3); White Blood Cell Count 9.27 K/mm3 (4.00-11.30)
[2021-06-27 16:10] LABS: Alanine Aminotransfer (ALT/SGP 8 U/L (12-78); Albumin, Blood 2.5 g/dL (3.4-5.0); Albumin/Globulin Ratio 0.4 (0.8-1.8); Alk Phos 67 U/L (50-136); Anion Gap 7 mmol/L (6-16); Aspartate Aminotrans (AST/SGOT 16 U/L (12-37); Bilirubin, Total 0.4 mg/dL (0.1-1.0); Blood Urea Nitrogen 12 mg/dL (8-24); CO2, Blood 30 mmol/L (21-32); Calcium, Blood 8.5 mg/dL (8.5-10.1); Chloride, Blood 102 mmol/L (98-108); Globulin, Blood 5.7 g/dL (2.2-4.0); Glomerular Filtration Rate >60 (60-); Glucose, Blood 97 mg/dL (70-99); Potassium, Blood 3.4 mmol/L (3.5-5.5); Sodium, Blood 139 mmol/L (136-145); Total Protein, Blood 8.2 g/dL (6.4-8.2)
[2021-06-27 16:22] LABS: Source, Urine Clean Catch
[2021-06-27 16:44] LABS: Bilirubin, Urine Neg (Neg); Blood, Urine 2+ (Neg); Glucose Qualitative, Urine Neg (Neg); Ketones, Urine Neg (Neg); Leukocyte Esterase, Urine 1+ (Neg); Nitrite, Urine Pos (Neg); Protein, Urine 2+ (Neg); Specific Gravity, Urine 1.015 (1.003-1.022); Urobilinogen, Urine NORM (Normal)
[2021-06-27 16:45] LABS: Appearance, Urine Clear (Clear); Color, Urine Pale Yellow (P-Yellow)
[2021-06-27 16:46] LABS: Amorphous Heavy (0-Heavy); Bacteria Few /hpf; Squamous Epithelial Cells Rare /hpf (Few)
[2021-06-27 16:55] LABS: Influenza A, PCR NEGATIVE (NEGATIVE); Influenza B, PCR NEGATIVE (NEGATIVE); Resp Syncytial Virus, PCR NEGATIVE (NEGATIVE); SARS-Cov-2 (COVID-19) PCR, MMC NEGATIVE (NEGATIVE)
[2021-06-27] MEDS ORDERED: OMEP20ER PO (21:48)
[2021-06-27] MEDS ORDERED: CLOP75 PO (21:49)
[2021-06-27] MEDS ORDERED: Norco 5-325 Ta1 EACH PO (21:50)
[2021-06-27 21:52] LABS: Hematocrit 22.4 % (33.0-51.0); Hemoglobin 6.7 g/dL (11.5-16.0)
--- NOTE | 2021-06-27 22:46 | NUR ---
NURSING ADMIT NOTE 66 YR OLD FEMALE ADMITTED TO FLOOR FROM THE ED WITH DX OF GI BLEED. ED RN REPORTED WAS JUST RE DIAGNOSED WITH LUNG CANCER, (HAD LUNG CA DX BEFORE AND NOW HAS IT AGAIN). ED RN REPORTED PLAN TO TRANSFER TO [facility] IN THE AM WE DIDNT HAVE A GI MD UNTIL JULY. CHARGE NURSE NOTIFIED OF SAID PLANS. PT ALERT AND ORIENTED. ORIENTED TO CALL LIGHT. CALL LIGHT IN REACH.
--- NOTE | 2021-06-27 23:37 | NUR ---
MD REVIEWED LATEST H/H, ORDERED ONE UNIT OF PRBC. PT SIGNED CONSENT. WAITING FOR BLOOD
--- NOTE | 2021-06-28 04:08 | NUR ---
SALES CONSULTANT RESIDENTIAL MANAGER SUMMARY WAS ADMITTED LAST NIGHT WITH DX OF GI BLEED AND NEW DX OF LUNG CANCER. H/H WAS DRAWN AND ORDERED A UNIT OF PRBC. BLOOD ADMINISTERED. VSS. DENIED ADVERSE REACTIONS. ORIENTED X 4. POSSIBLE DC TO [facility] FOR GI MD FOLLOW UP LATER TODAY. O2 PER NC AT 3L/MIN. CALL LIGHT IN REACH.
[2021-06-28 04:49] LABS: BASOPHILS ABSOLUTE AUTO 0.07 K/mm3 (0.00-0.23); BASOPHILS PERCENT AUTO 1 % (0-2); EOSINOPHILS PERCENT AUTO 3 % (0-6); Hematocrit 25.4 % (33.0-51.0); Hemoglobin 7.7 g/dL (11.5-16.0); IMMATURE GRAN ABSOLUTE AUTO 0.03 K/mm3 (0.00-0.10); IMMATURE GRAN PERCENT AUTO 0 % (0-1); LYMPHOCYTES ABSOLUTE AUTO 2.13 K/mm3 (0.84-5.20); LYMPHOCYTES PERCENT AUTO 23 % (21-46); MONOCYTES ABSOLUTE AUTO 1.01 K/mm3 (0.16-1.47); MONOCYTES PERCENT AUTO 11 % (4-13); Mean Corpuscular HGB 24.8 pg (26.0-34.0); Mean Corpuscular HGB Conc 30.3 g/dL (31.5-36.5); Mean Corpuscular Volume 82 fL (80-100); Mean Platelet Volume 8.9 fL (9.1-12.4); NEUTROPHILS ABSOLUTE AUTO 5.55 K/mm3 (1.96-9.15); NEUTROPHILS PERCENT AUTO 61 % (41-73); Platelet Count 320 K/mm3 (150-400); RDW Coefficient Variation 17.8 % (11.7-14.2); RDW Standard Deviation 53.2 fL (35.1-46.3); White Blood Cell Count 9.09 K/mm3 (4.00-11.30)
[2021-06-28 06:45] LABS: Anion Gap 8 mmol/L (6-16); Blood Urea Nitrogen 13 mg/dL (8-24); Bun/Creatinine Ratio 14.2 (12.0-20.0); CO2, Blood 29 mmol/L (21-32); Calcium, Blood 8.1 mg/dL (8.5-10.1); Chloride, Blood 103 mmol/L (98-108); Creatinine, Blood 0.92 mg/dL (0.40-1.00); Ferritin, Serum 23 ng/mL (8-252); Glomerular Filtration Rate >60 (60-); Glucose, Blood 95 mg/dL (70-99); Iron Serum 96 ug/dL (50-170); Percent Saturation 29.4 % (15.0-50.0); Potassium, Blood 3.8 mmol/L (3.5-5.5); Sodium, Blood 140 mmol/L (136-145); Total Iron Binding Capacity 327 ug/dL (250-450)
--- NOTE | 2021-06-28 19:10 | NUR ---
SHIFT SUMMARY- PT IS A/O, PLESANT AND COOPERATIVE. SHE IS ON A CLEAR LIQUID DIET. SHE IS PENDING TRANSFER TO [place] FOR GI. SHE IS AMBULATING TO THE RESTROOM. HER BED IS IN THE LOW POSITION AND CALL LIGHT IS WITHIN REACH.
[2021-06-28 19:11] LABS: Hematocrit 25.8 % (33.0-51.0); Hemoglobin 7.8 g/dL (11.5-16.0)
--- NOTE | 2021-06-29 04:02 | NUR ---
APARTMENT MAINTENANCE SUMMARY ADMITTED FOR UPPER GI BLEED. PT IS FULL CODE. SHE REPORTS SOME PAIN IN HER CHEST SECONDARY TO COUGH THAT WAS RELIEVED WITH TESSALON PERRLS. PT RECEIVED ONE DOSE OF IV ABX. SHE HAS BEEN INDEPENDENT IN THE ROOM. ON 2L OF O2, WHICH IS PT'S BASELINE AND SATTING 95%. NO OTHER CONCERNS THIS SHIFT.
[2021-06-29 08:03] LABS: BASOPHILS ABSOLUTE AUTO 0.04 K/mm3 (0.00-0.23); BASOPHILS PERCENT AUTO 0 % (0-2); EOSINOPHILS ABSOLUTE AUTO 0.29 K/mm3 (0.00-0.68); EOSINOPHILS PERCENT AUTO 3 % (0-6); Hematocrit 27.7 % (33.0-51.0); Hemoglobin 8.2 g/dL (11.5-16.0); IMMATURE GRAN ABSOLUTE AUTO 0.04 K/mm3 (0.00-0.10); IMMATURE GRAN PERCENT AUTO 0 % (0-1); LYMPHOCYTES PERCENT AUTO 15 % (21-46); MONOCYTES ABSOLUTE AUTO 0.99 K/mm3 (0.16-1.47); MONOCYTES PERCENT AUTO 10 % (4-13); Mean Corpuscular HGB 24.3 pg (26.0-34.0); Mean Corpuscular HGB Conc 29.6 g/dL (31.5-36.5); Mean Corpuscular Volume 82 fL (80-100); Mean Platelet Volume 8.7 fL (9.1-12.4); NEUTROPHILS ABSOLUTE AUTO 6.99 K/mm3 (1.96-9.15); NEUTROPHILS PERCENT AUTO 71 % (41-73); Platelet Count 306 K/mm3 (150-400); RDW Coefficient Variation 17.2 % (11.7-14.2); RDW Standard Deviation 50.8 fL (35.1-46.3); Red Blood Cell Count 3.38 M/mm3 (3.80-5.20); White Blood Cell Count 9.85 K/mm3 (4.00-11.30)
[2021-06-29] MEDS ORDERED: PANT40 PO (12:31)
[2021-06-29] MEDS ORDERED: Tessalon200 MG PO (12:32)
[2021-06-29] MEDS ORDERED: VISBIOME 112.51 EACH PO (12:33)
[2021-06-29] MEDS ORDERED: ONDA4ODT MM (13:59)
--- NOTE | 2021-06-29 14:17 | NUR ---
DISCHARGE SUMMARY PT LEFT ROOM VIA WHEELCHAIR WITH SHOW OPERATIONS SUPERVISOR ESCORT JUST PRIOR TO THIS MESSAGE. PT EDUCATED ON MEDICATIONS AND INSTRUCTED TO FOLLOW UP WITH PCP. FAX SENT TO PCP VIA [facility] PALMER TO THAT EDG AND GI REFERRAL ARE ORDERED. IV DC'D AND BELONGINGS RETURNED. PT EAGER TO DC HOME AND REFUSED TO WEAR O2 VIA NCM, STATING THAT SHE DOESN'T WEAR IT "TO TOWN."
== END 2021-06-29 14:13 | disposition home or self-care (01) | DRG 378 ==
LOC: ER 15:12 → MEDS 15:13 → ER 22:05 → MEDS 22:05
PROVIDERS: Family Medicine; Physician Assistant; Student in an Organized Health Care Education/Training Program; ADMIT Internal Medicine
PROC: 30233N1 Transfusion of Nonautologous Red Blood Cells into Peripheral Vein, Percutaneous Approach (ICD-10-PCS; principal; 2021-06-28)
DX: K92.2 Gastrointestinal hemorrhage, unspecified (principal); N39.0 Urinary tract infection, site not specified; D62 Acute posthemorrhagic anemia; C34.90 Malignant neoplasm of unspecified part of unspecified bronchus or lung; Z20.822 Contact with and (suspected) exposure to COVID-19; I73.9 Peripheral vascular disease, unspecified; E87.6 Hypokalemia; J44.9 Chronic obstructive pulmonary disease, unspecified; F15.90 Other stimulant use, unspecified, uncomplicated; F12.90 Cannabis use, unspecified, uncomplicated; F13.90 Sedative, hypnotic, or anxiolytic use, unspecified, uncomplicated; G40.909 Epilepsy, unspecified, not intractable, without status epilepticus; D63.0 Anemia in neoplastic disease; K52.9 Noninfective gastroenteritis and colitis, unspecified; J45.909 Unspecified asthma, uncomplicated; G43.909 Migraine, unspecified, not intractable, without status migrainosus; I10 Essential (primary) hypertension; E03.9 Hypothyroidism, unspecified; F17.210 Nicotine dependence, cigarettes, uncomplicated; Z53.20 Procedure and treatment not carried out because of patient's decision for unspecified reasons; G89.29 Other chronic pain; Z85.3 Personal history of malignant neoplasm of breast; Z98.51 Tubal ligation status; Z91.038 Other insect allergy status; Z90.10 Acquired absence of unspecified breast and nipple; Z92.21 Personal history of antineoplastic chemotherapy; Z92.3 Personal history of irradiation; Z95.820 Peripheral vascular angioplasty status with implants and grafts; Z98.890 Other specified postprocedural states; Z88.5 Allergy status to narcotic agent; Z88.8 Allergy status to other drugs, medicaments and biological substances; Z91.040 Latex allergy status; Z88.7 Allergy status to serum and vaccine; Z79.82 Long term (current) use of aspirin; Z79.899 Other long term (current) drug therapy
CPT/HCPCS: 0241U; 36415; 36430; 71045; 74177; 80048; 80053; 81001; 82272; 82607; 82728; 82746; 83540; 83550; 85014; 85018; 85025; 86850; 86900; 86901; 86923; 87086; 93005; 93010; 94640; 94762; 96374; 96375; 96376; 99285-25; A9270; C9113; G0378; J0696; J7030; J7050; P9016; Q9967